=== PATIENT | female | born 1935 | race Caucasian/White ===

== ENCOUNTER → 2020-10-13 | Outpatient (CLI) | payer MEDICARE ==
[~2020-10-13] MED LIST: ALLEGRA ALLERG180 MG PO; BUSPAR 10MG10 MG PO; COREG12.5 MG PO; DITROPAN XL10 MG PO; DOXYCYCLINE HY100 MG PO; DULOXETINE HCL60 MG PO; ECOTRIN325 MG PO; FLONASE 0.05% N16 GM; HUMULIN N100 UNIT/2 SC; HYDRALAZINE HCL50 MG PO; HYDROCODON-ACE1 EAC5 PO; IMDUR ER TAB 3030 MG PO; IPRAT-ALBUT 0.5-3 ML INH; LASIX20 MG PO; LEVAQUIN750 MG PO; LINZESS290 MCG PO; LISINOPRIL20 MG PO; MUCINEX600 MG PO; MYCOSTATIN100000 UTS PO; NYSTATIN1 EAC9 MC; NYSTATIN15 GM TP; PLAQUENIL 200200 MG PO; POTASSIUM CHLO20 ME2 PO; PREMARIN0.625 MG PO; PROTONIX40 MG PO; TAMIFLU PO; TRAZODONE HCL150 MG PO; ZOCOR20 MG PO
== END ==
LOC: KOH-I 09:55
DX: S91.104A Unspecified open wound of right lesser toe(s) without damage to nail, initial encounter (principal); X58.XXXA Exposure to other specified factors, initial encounter; I73.9 Peripheral vascular disease, unspecified
CPT/HCPCS: 93926

== ENCOUNTER → 2020-11-09 | Outpatient (CLI) | payer MEDICARE | LOC: NM 08:10 | DX: T81.89XA Other complications of procedures, not elsewhere classified, initial encounter (principal) | CPT/HCPCS: 73620; 78315; A9503 ==

== ENCOUNTER → 2021-01-31 | Outpatient (CLI) | payer MEDICARE | LOC: KOH-I 11:07 | DX: M79.672 Pain in left foot (principal); M79.671 Pain in right foot; M19.072 Primary osteoarthritis, left ankle and foot; M19.071 Primary osteoarthritis, right ankle and foot | CPT/HCPCS: 73630 ==

== ENCOUNTER → 2021-03-09 | Outpatient (CLI) | payer MEDICARE | LOC: KOH-I 11:31 | DX: M79.671 Pain in right foot (principal); M25.571 Pain in right ankle and joints of right foot; S82.64XA Nondisplaced fracture of lateral malleolus of right fibula, initial encounter for closed fracture; R93.6 Abnormal findings on diagnostic imaging of limbs | CPT/HCPCS: 73610; 73630 ==

== ENCOUNTER → 2021-04-06 | Outpatient (CLI) | payer MEDICARE | LOC: KOH-I 10:49 | DX: S82.401D Unspecified fracture of shaft of right fibula, subsequent encounter for closed fracture with routine healing (principal) | CPT/HCPCS: 73610 ==

== ENCOUNTER → 2021-05-02 | Outpatient (CLI) | payer MEDICARE | LOC: KOH-I 10:30 | DX: S82.831D Other fracture of upper and lower end of right fibula, subsequent encounter for closed fracture with routine healing (principal) | CPT/HCPCS: 73610 ==

== ENCOUNTER → 2021-05-05 | Outpatient (CLI) | payer MEDICARE | LOC: KOH-I 12:58 | DX: E11.51 Type 2 diabetes mellitus with diabetic peripheral angiopathy without gangrene (principal) | CPT/HCPCS: 93926 ==

== ENCOUNTER → 2021-05-23 | Outpatient (CLI) | payer MEDICARE | LOC: KOH-I 10:52 | DX: S82.491D Other fracture of shaft of right fibula, subsequent encounter for closed fracture with routine healing (principal) | CPT/HCPCS: 73610 ==

== ENCOUNTER → 2021-06-06 | Outpatient (CLI) | payer MEDICARE | LOC: NM 05-30 09:55 | DX: M86.9 Osteomyelitis, unspecified (principal) | CPT/HCPCS: 78315; A9503 ==

== ENCOUNTER → 2021-06-13 | Outpatient (CLI) | payer MEDICARE ==
[2021-06-13 16:46] LABS: HEMOGLOBIN 9.2 gm/dl (12.3-15.3); RED BLOOD COUNT 2.92 M/UL (4.00-5.10); WHITE BLOOD COUNT 5.2 K/UL (4.5-11.0)
== END ==
LOC: LAB 15:31
PROVIDERS: Podiatrist Foot & Ankle Surgery
DX: Z00.00 Encounter for general adult medical examination without abnormal findings (principal); M86.9 Osteomyelitis, unspecified
CPT/HCPCS: 80053; 85027; 85652; 86140

== ENCOUNTER → 2021-06-24 | Outpatient (CLI) | payer MEDICARE ==
[~2021-06-24] VITALS: Ht 157.5 cm; Wt 111.1 kg
== END ==
LOC: OPSV 07:00
DX: M86.9 Osteomyelitis, unspecified (principal); Z88.0 Allergy status to penicillin
CPT/HCPCS: 96365; J0878

== ENCOUNTER → 2021-06-26 | Outpatient (CLI) | payer MEDICARE ==
[2021-06-26 14:51] LABS: HEMOGLOBIN 8.4 gm/dl (12.3-15.3); RED BLOOD COUNT 2.82 M/UL (4.00-5.10); WHITE BLOOD COUNT 5.2 K/UL (4.5-11.0)
== END ==
LOC: OPSV 07:30
PROVIDERS: Podiatrist Foot & Ankle Surgery
DX: M86.9 Osteomyelitis, unspecified (principal); Z00.00 Encounter for general adult medical examination without abnormal findings
CPT/HCPCS: 36415; 80053; 82550; 85027; 85652; 86140

== ENCOUNTER → 2021-07-10 | Outpatient (CLI) | payer MEDICARE ==
[2021-07-10 10:59] LABS: HEMOGLOBIN 8.3 gm/dl (12.3-15.3); RED BLOOD COUNT 2.69 M/UL (4.00-5.10); WHITE BLOOD COUNT 8.3 K/UL (4.5-11.0)
== END ==
LOC: OPSV 10:00
PROVIDERS: Podiatrist Foot & Ankle Surgery
DX: M86.9 Osteomyelitis, unspecified (principal); Z00.00 Encounter for general adult medical examination without abnormal findings
CPT/HCPCS: 80053; 82550; 85027; 85652; 86140

== ENCOUNTER → 2021-07-17 | Outpatient (CLI) | payer MEDICARE ==
[~2021-07-17] MED LIST changes: +CUBICIN 500 MG500 MG INJ; +LEXAPRO10 MG PO; +LIDOCAINE1 EAC1 EXT; +PLAVIX 75 MG TA75 MG PO; +SINGULAIR10 MG PO; +TIZANIDINE HCL4 MG PO; +VITAMIN B-121000 MCG PO; +VITAMIN D21250 MCG PO
[2021-07-17 11:10] LABS: HEMOGLOBIN 7.7 gm/dl (12.3-15.3); RED BLOOD COUNT 2.57 M/UL (4.00-5.10); WHITE BLOOD COUNT 10.1 K/UL (4.5-11.0)
== END ==
LOC: OPSV 10:00
PROVIDERS: Podiatrist Foot & Ankle Surgery
DX: M86.9 Osteomyelitis, unspecified (principal)
CPT/HCPCS: 80053; 82550; 85027; 85652; 86140

== ENCOUNTER 2021-07-18 18:12 | Inpatient (IN) | payer MEDICARE ==
[~2021-07-18] VITALS: Ht 158 cm; Wt 95.5 kg
[~2021-07-18 18:12] MED LIST changes: -ALLEGRA ALLERG180 MG PO; -CUBICIN 500 MG500 MG INJ; -FLONASE 0.05% N16 GM; -HUMULIN N100 UNIT/2 SC; -LEXAPRO10 MG PO; -LIDOCAINE1 EAC1 EXT; -LISINOPRIL20 MG PO; -PLAVIX 75 MG TA75 MG PO; -SINGULAIR10 MG PO; -TIZANIDINE HCL4 MG PO; -TRAZODONE HCL150 MG PO; -VITAMIN B-121000 MCG PO; -VITAMIN D21250 MCG PO
[2021-07-18 18:47] LABS: HEMOGLOBIN 7.8 gm/dl (12.3-15.3); RED BLOOD COUNT 2.59 M/UL (4.00-5.10); WHITE BLOOD COUNT 11.5 K/UL (4.5-11.0)
[2021-07-18 19:18] LABS: BUN/CREATININE RATIO 27 (0-10)
[2021-07-18] MEDS ORDERED: LEXAPRO10 MG PO (23:18)
[2021-07-18] MEDS ORDERED: PLAVIX 75 MG TA75 MG PO (23:19)
--- NOTE | 2021-07-19 02:12 | NUR ---
COULD NOT VERIFY PATIENT MEDS. PATIENT ONLY KNOWS MEDS BY COLOR. WILL REPORT TO DAYSHIFT.
[2021-07-19 07:21] LABS: BUN/CREATININE RATIO 22 (0-10)
[2021-07-19] MEDS ORDERED: VITAMIN D21250 MCG PO (11:53)
[2021-07-19] MEDS ORDERED: TIZANIDINE HCL4 MG PO (11:54)
[2021-07-19] MEDS ORDERED: VITAMIN B-121000 MCG PO (11:56)
[2021-07-19] MEDS ORDERED: LIDOCAINE1 EAC1 EXT (11:59)
[2021-07-19] MEDS ORDERED: CUBICIN 500 MG500 MG INJ (12:00)
[2021-07-19] MEDS ORDERED: LISINOPRIL20 MG PO (20:49)
[2021-07-19] MEDS ORDERED: TRAZODONE HCL150 MG PO (20:49)
[2021-07-19] MEDS ORDERED: ALLEGRA ALLERG180 MG PO (20:50)
[2021-07-19] MEDS ORDERED: HUMULIN N100 UNIT/2 SC (20:51)
[2021-07-19] MEDS ORDERED: FLONASE 0.05% N16 GM (20:53)
[2021-07-19] MEDS ORDERED: SINGULAIR10 MG PO (23:19)
[2021-07-21 16:44] LABS: HEMOGLOBIN 7.5 gm/dl (12.3-15.3); RED BLOOD COUNT 2.53 M/UL (4.00-5.10); WHITE BLOOD COUNT 14.2 K/UL (4.5-11.0)
--- NOTE | 2021-07-21 16:57 | NUR ---
dressing change complete per providers order
[2021-07-22 00:46] LABS: BORDETELLA PARAPERTUSSIS Not Detected (Not Detectd); BORDETELLA PERTUSSIS Not Detected (Not Detectd); CHLAMYDIA PNEUMONIAE Not Detected (Not Detectd); CORONAVIRUS HKU1 Not Detected (Not Detectd); CORONAVIRUS NL63 Not Detected (Not Detectd); CORONAVIRUS OC43 Not Detected (Not Detectd); CORONOAVIRUS 229E Not Detected (Not Detectd); HUMAN METAPNEUMOVIRUS Not Detected (Not Detectd); HUMAN RHINOVIRUS/ENTEROVIRUS Not Detected (Not Detectd); INFLUENZA A Not Detected (Not Detectd); INFLUENZA B Not Detected (Not Detectd); MYCOPLASMA PNEUMONIAE Not Detected (Not Detectd); PARAINFLUENZA VIRUS 1 Not Detected (Not Detectd); PARAINFLUENZA VIRUS 2 Not Detected (Not Detectd); PARAINFLUENZA VIRUS 3 Not Detected (Not Detectd); PARAINFLUENZA VIRUS 4 Not Detected (Not Detectd); RESPIRATORY SYNCYTIAL VIRUS Not Detected (Not Detectd)
[2021-07-22 01:56] LABS: SARS-CoV-2 NOT DETECTED (Not Detectd)
[2021-07-22 05:32] LABS: HEMOGLOBIN 7.8 gm/dl (12.3-15.3); RED BLOOD COUNT 2.64 M/UL (4.00-5.10); WHITE BLOOD COUNT 13.1 K/UL (4.5-11.0)
[2021-07-24 12:58] LABS: HEMOGLOBIN 7.8 gm/dl (12.3-15.3); RED BLOOD COUNT 2.68 M/UL (4.00-5.10); WHITE BLOOD COUNT 12.7 K/UL (4.5-11.0)
[2021-07-25 05:01] LABS: HEMOGLOBIN 7.8 gm/dl (12.3-15.3); RED BLOOD COUNT 2.69 M/UL (4.00-5.10); WHITE BLOOD COUNT 11.6 K/UL (4.5-11.0)
[2021-07-25 10:16] LABS: RHEUMATOID ARTHRITIS FACTOR 14.3 IU/mL (<14.0)
[2021-07-25 15:16] LABS: ANTI-CENTROMERE B ANTIBODIES <0.2 AI (0.0-0.9); ANTI-DNA (DS) AB QN 1 IU/mL (0-9); ANTI-JO-1 <0.2 AI (0.0-0.9); ANTICHROMATIN ANTIBODIES <0.2 AI (0.0-0.9); ANTIRIBOSOMAL P ANTIBODIES <0.2 AI (0.0-0.9); ANTISCLERODERMA-70 ANTIBODIES <0.2 AI (0.0-0.9); DSDNA CRITHIDIA LUCILIAE IFA Negative (Negative); RNP ANTIBODIES <0.2 AI (0.0-0.9); SJOGREN'S ANTI-SS-A <0.2 AI (0.0-0.9); SJOGREN'S ANTI-SS-B <0.2 AI (0.0-0.9); SMITH ANTIBODIES <0.2 AI (0.0-0.9); SMITH/RNP ANTIBODIES <0.2 AI (0.0-0.9)
[2021-07-26 04:25] LABS: RED BLOOD COUNT 2.72 M/UL (4.00-5.10); WHITE BLOOD COUNT 11.4 K/UL (4.5-11.0)
[2021-07-26 17:12] LABS: ANTIMYELOPEROXIDASE (MPO) ABS <9.0 U/mL (0.0-9.0); ANTIPROTEINASE 3 (PR-3) ABS <3.5 U/mL (0.0-3.5); ATYPICAL PANCA <1:20 titer (Neg:<1:20); CYTOPLASMIC (C-ANCA) >1:640 titer (Neg:<1:20); PERINUCLEAR (P-ANCA) <1:20 titer (Neg:<1:20)
[2021-07-28 03:39] LABS: HEMOGLOBIN 8.1 gm/dl (12.3-15.3); RED BLOOD COUNT 2.74 M/UL (4.00-5.10); WHITE BLOOD COUNT 12.9 K/UL (4.5-11.0)
[2021-07-28 09:14] LABS: ASPERGILLUS FUMAGATUS IGG Negative (Negative); AUREOBASIDIUM PULLULANS IGG Negative (Negative); MICROPOLYSPORA FAENI IGG Negative (Negative); PIGEON SERUM IGG Negative (Negative); THERMOACTINOMYCES SACCHARI IGG Negative (Negative); THERMOACTINOMYCES VULGARIS IGG Negative (Negative)
--- NOTE | 2021-07-29 10:15 | NUR ---
ROOM AIR IS 85% AFTER 5 MINUTES
[2021-07-29] MEDS ORDERED: LASIX20 MG PO ×2 (15:31→15:42)
[2021-07-29] MEDS ORDERED: ALPRAZOLAM0.5 MG PO (15:31)
--- NOTE | 2021-07-30 16:27 | NUR ---
CALLED [facility] TO GIVE REPORT 3 TIMES. WAS PUT ON HOLD FOR EXTENDED PERIODS OF TIME EACH TIME. THE FOURTH CALL, THE CALL WAS ANSWERED AND A CALL BACK NUMBER GIVEN. WAS TOLD NURSE FROM [facility] WOULD CALL BACK TO GIVE REPORT SOON HE/SHE WAS OFF THE PHONE WITH THE CURRENT CLIENT. WILL CONTINUE TO MONITOR.
== END 2021-07-30 19:52 | disposition home health service (06) | DRG 291 ==
LOC: ER1 18:12 → M/S 21:05 → CDU 21:05 → M/S 22:06
PROVIDERS: Emergency Medicine; Internal Medicine; Internal Medicine Critical Care Medicine; Internal Medicine Nephrology; Internal Medicine Pulmonary Disease; Physician Assistant; ADMIT Internal Medicine
PROC: B24BZZZ Ultrasonography of Heart with Aorta (ICD-10-PCS; principal; 2021-07-25)
DX: I13.0 Hypertensive heart and chronic kidney disease with heart failure and stage 1 through stage 4 chronic kidney disease, or unspecified chronic kidney disease (principal); I50.33 Acute on chronic diastolic (congestive) heart failure; G93.41 Metabolic encephalopathy; J18.9 Pneumonia, unspecified organism; J80 Acute respiratory distress syndrome; Z20.822 Contact with and (suspected) exposure to COVID-19; N30.00 Acute cystitis without hematuria; M86.8X7 Other osteomyelitis, ankle and foot; F11.20 Opioid dependence, uncomplicated; B96.1 Klebsiella pneumoniae [K. pneumoniae] as the cause of diseases classified elsewhere; E11.40 Type 2 diabetes mellitus with diabetic neuropathy, unspecified; E66.9 Obesity, unspecified; E11.69 Type 2 diabetes mellitus with other specified complication; E11.22 Type 2 diabetes mellitus with diabetic chronic kidney disease; M06.9 Rheumatoid arthritis, unspecified; D63.1 Anemia in chronic kidney disease; F32.A Depression, unspecified; N18.30 Chronic kidney disease, stage 3 unspecified; G89.29 Other chronic pain; I43 Cardiomyopathy in diseases classified elsewhere; I27.20 Pulmonary hypertension, unspecified; I08.3 Combined rheumatic disorders of mitral, aortic and tricuspid valves; F41.9 Anxiety disorder, unspecified; Z79.82 Long term (current) use of aspirin; Z79.01 Long term (current) use of anticoagulants; Z79.4 Long term (current) use of insulin; Z99.81 Dependence on supplemental oxygen; Z90.3 Acquired absence of stomach [part of]; Z90.710 Acquired absence of both cervix and uterus; Z98.890 Other specified postprocedural states; Z82.49 Family history of ischemic heart disease and other diseases of the circulatory system; Z88.0 Allergy status to penicillin; Z68.38 Body mass index [BMI] 38.0-38.9, adult
CPT/HCPCS: ECHO; 0240U; 36415; 36600; 71045; 71250; 80048; 80053; 80061; 80202; 81001; 82550; 82553; 82728; 82803; 82962; 83036; 83516; 83520; 83605; 83880; 84439; 84443; 84484; 84550; 85025; 85027; 85379; 85652; 86140; 86200; 86235; 86255; 86256; 86331; 86431; 86602; 86609; 86671; 87040; 87077; 87086; 87186; 87633; 93005; 93306; 94640; 94664; 94760; 96372; 96374; 96375; 96376; 97161; 97530; 97530-GP-CQ; 99285; A6212; G0378; J0878; J1335; J1644; J1940; J2920; J3370; J7070; Q9967

== ENCOUNTER → 2021-08-31 | Outpatient (CLI) | payer MEDICARE ==
[~2021-08-31] MED LIST changes: +ALLEGRA ALLERG180 MG PO; +ALPRAZOLAM0.5 MG PO; +CUBICIN 500 MG500 MG INJ; +FLONASE 0.05% N16 GM; +HUMULIN N100 UNIT/2 SC; +LEXAPRO10 MG PO; +LIDOCAINE1 EAC1 EXT; +LISINOPRIL20 MG PO; +PLAVIX 75 MG TA75 MG PO; +SINGULAIR10 MG PO; +TIZANIDINE HCL4 MG PO; +TRAZODONE HCL150 MG PO; +VITAMIN B-121000 MCG PO; +VITAMIN D21250 MCG PO
== END ==
LOC: HEART 5 14:46
DX: R06.02 Shortness of breath (principal); R91.8 Other nonspecific abnormal finding of lung field
CPT/HCPCS: 71046; 94060; 94729

== ENCOUNTER 2021-09-08 22:49 | Inpatient (IN) | payer MEDICARE ==
[~2021-09-08] VITALS: Ht 157.5 cm; Wt 99.3 kg
[~2021-09-08 22:49] MED LIST changes: -HYDROCODON-ACE1 EAC5 PO; +HYDROCODON-ACE1 EAC6 PO; +MACROBID 100 M100 M1 PO; -TRAZODONE HCL150 MG PO; +TRAZODONE HCL50 MG PO
[2021-09-08 23:21] LABS: HEMOGLOBIN 7.8 gm/dl (12.3-15.3); RED BLOOD COUNT 2.72 M/UL (4.00-5.10); WHITE BLOOD COUNT 13.3 K/UL (4.5-11.0)
[2021-09-08 23:49] LABS: BUN/CREATININE RATIO 31 (0-10)
[2021-09-09 08:39] LABS: HEMOGLOBIN 7.4 gm/dl (12.3-15.3); RED BLOOD COUNT 2.61 M/UL (4.00-5.10); WHITE BLOOD COUNT 12.9 K/UL (4.5-11.0)
[2021-09-09 09:01] LABS: BUN/CREATININE RATIO 29 (0-10)
[2021-09-09] MEDS ORDERED: AMMONIUM LACTA140 GM TOP (11:24)
[2021-09-09] MEDS ORDERED: ALPRAZOLAM0.25 MG PO (11:34)
[2021-09-09] MEDS ORDERED: FUROSEMIDE20 MG PO (11:35)
[2021-09-09] MEDS ORDERED: BENZONATATE200 MG PO (11:35)
[2021-09-09] MEDS ORDERED: SIMVASTATIN20 MG PO (11:36)
[2021-09-09] MEDS ORDERED: FUROSEMIDE40 MG PO (11:37)
[2021-09-09] MEDS ORDERED: TRAZODONE HCL150 MG PO (11:38)
[2021-09-09] MEDS ORDERED: TIZANIDINE HCL4 MG PO (11:39)
[2021-09-09] MEDS ORDERED: AMMONIUM LACTA140 GM TP (20:11)
[2021-09-09] MEDS ORDERED: BREO ELLIPTA 11 EACH INH (20:12)
[2021-09-10 02:32] LABS: HEMOGLOBIN 7.4 gm/dl (12.3-15.3); RED BLOOD COUNT 2.66 M/UL (4.00-5.10); WHITE BLOOD COUNT 14.4 K/UL (4.5-11.0)
[2021-09-12 03:10] LABS: HEMOGLOBIN 7.5 gm/dl (12.3-15.3); RED BLOOD COUNT 2.69 M/UL (4.00-5.10)
[2021-09-12 03:23] LABS: WHITE BLOOD COUNT 10.5 K/UL (4.5-11.0)
[2021-09-12 03:59] LABS: BUN/CREATININE RATIO 28 (0-10)
[2021-09-13 03:51] LABS: BUN/CREATININE RATIO 25 (0-10)
[2021-09-13 04:19] LABS: RED BLOOD COUNT 2.45 M/UL (4.00-5.10); WHITE BLOOD COUNT 8.3 K/UL (4.5-11.0)
[2021-09-13 04:25] LABS: HEMOGLOBIN 6.9 gm/dl (12.3-15.3)
--- NOTE | 2021-09-13 08:25 | NUR ---
patient on the floor seeing patient, reported hgb low and received order to hold aspirin today
[2021-09-13] MEDS ORDERED: PROTONIX IV40 MG IVP (10:58)
[2021-09-13] MEDS ORDERED: LEVOFLOXACIN750 MG PO (10:58)
[2021-09-13] MEDS ORDERED: FERROUS GLUCON324 M1 PO (10:58)
[2021-09-13] MEDS ORDERED: DOCUSATE SODIU100 MG PO (10:58)
[2021-09-13] MEDS ORDERED: CLEOCIN HCL300 MG PO (10:58)
[2021-09-13] MEDS ORDERED: ISOSORBIDE MONO30 MG PO (10:58)
[2021-09-13] MEDS ORDERED: PHENERGAN 25 MG25 M1 PO (10:58)
[2021-09-13 18:48] LABS: HEMOGLOBIN 8.5 gm/dl (12.3-15.3)
== END 2021-09-14 | disposition short-term general hospital (02) | DRG 193 ==
LOC: ER1 22:49 → CDU 09-09 00:37 → M/S 09-09 00:37
PROVIDERS: Family Medicine; Internal Medicine; ADMIT Internal Medicine
PROC: 30233N1 Transfusion of Nonautologous Red Blood Cells into Peripheral Vein, Percutaneous Approach (ICD-10-PCS; principal; 2021-09-13)
DX: J15.9 Unspecified bacterial pneumonia (principal); J96.21 Acute and chronic respiratory failure with hypoxia; I50.32 Chronic diastolic (congestive) heart failure; Z20.822 Contact with and (suspected) exposure to COVID-19; I13.0 Hypertensive heart and chronic kidney disease with heart failure and stage 1 through stage 4 chronic kidney disease, or unspecified chronic kidney disease; Z68.41 Body mass index [BMI] 40.0-44.9, adult; K21.9 Gastro-esophageal reflux disease without esophagitis; E66.9 Obesity, unspecified; F41.9 Anxiety disorder, unspecified; F32.A Depression, unspecified; N18.30 Chronic kidney disease, stage 3 unspecified; E11.22 Type 2 diabetes mellitus with diabetic chronic kidney disease; E11.621 Type 2 diabetes mellitus with foot ulcer; M06.9 Rheumatoid arthritis, unspecified; E11.65 Type 2 diabetes mellitus with hyperglycemia; D50.9 Iron deficiency anemia, unspecified; D63.1 Anemia in chronic kidney disease; E87.6 Hypokalemia; Z79.4 Long term (current) use of insulin; Z90.49 Acquired absence of other specified parts of digestive tract; Z90.710 Acquired absence of both cervix and uterus; Z98.890 Other specified postprocedural states; Z88.0 Allergy status to penicillin; Z82.49 Family history of ischemic heart disease and other diseases of the circulatory system; Z80.8 Family history of malignant neoplasm of other organs or systems; Z99.81 Dependence on supplemental oxygen
CPT/HCPCS: 0240U; 36415; 36600; 71045; 80048; 80053; 81001; 82550; 82553; 82803; 82962; 83540; 83550; 83605; 83880; 84484; 85014; 85018; 85025; 85027; 85610; 86140; 86850; 86900; 86901; 86920; 87040; 87081; 92610; 93005; 94640; 94664; 94760; 96365; 97161; 97530; 99285; C9113; J1650; J1940; J1956; J7050; P9016

== ENCOUNTER 2021-12-14 00:52 | Emergency (ER) | payer MEDICARE ==
[~2021-12-14 00:52] MED LIST changes: +ALPRAZOLAM0.25 MG PO; +AMMONIUM LACTA140 GM TOP; +AMMONIUM LACTA140 GM TP; +BENZONATATE200 MG PO; +BREO ELLIPTA 11 EACH INH; +CLEOCIN HCL300 MG PO; +DOCUSATE SODIU100 MG PO; +FERROUS GLUCON324 M1 PO; +FUROSEMIDE20 MG PO; +FUROSEMIDE40 MG PO; +ISOSORBIDE MONO30 MG PO; +LEVOFLOXACIN750 MG PO; +PHENERGAN 25 MG25 M1 PO; +PROTONIX IV40 MG IVP; +SIMVASTATIN20 MG PO; +TRAZODONE HCL150 MG PO
[2021-12-14 02:14] LABS: HEMOGLOBIN 8.7 gm/dl (12.3-15.3); RED BLOOD COUNT 3.24 M/UL (4.00-5.10)
[2021-12-14] MEDS ORDERED: PAXLOVID 300-11 EACH PO (03:54)
[2021-12-14] MEDS ORDERED: BACTRIM DS TAB1 EACH PO (03:54)
== END 2021-12-14 04:20 | disposition home or self-care (01) ==
LOC: ER1 00:52
PROVIDERS: Emergency Medicine
DX: U07.1 COVID-19 (principal); N39.0 Urinary tract infection, site not specified; E11.22 Type 2 diabetes mellitus with diabetic chronic kidney disease; I12.9 Hypertensive chronic kidney disease with stage 1 through stage 4 chronic kidney disease, or unspecified chronic kidney disease; N18.9 Chronic kidney disease, unspecified; Z87.440 Personal history of urinary (tract) infections
CPT/HCPCS: 71045; 80053; 81001; 83605; 84484; 85025; 86140; 87077; 87086; 87186; 93005; 99285; U0002